=== PATIENT | female | born 1975 | race Hispanic/Latino ===

== ENCOUNTER 2021-09-12 15:49 | Inpatient (IN) | payer OTHER ==
[~2021-09-12] VITALS: Ht 167.6 cm; Wt 91.2 kg
[2021-09-12] MEDS ORDERED: FUROSEMIDE 40MG VIAL IV ONE (16:30)
[2021-09-12 16:43] LABS: BASOPHILS % (AUTO) 0.3 % (0.0-5.0); EOSINOPHILS % (AUTO) 2.7 % (0.0-8.0); LYMPHOCYTES % (AUTO) 14.4 % (21.0-51.0); MEAN CORPUSCULAR HEMOGLOBIN 29.8 pg (27.0-33.0); MEAN CORPUSCULAR HGB CONC 34.2 g/dL (32.0-36.0); MEAN CORPUSCULAR VOLUME 87.3 fL (79-99); NEUTROPHILS % (AUTO) 77.1 % (40.0-77.0); PLATELET COUNT (AUTO) 168 K/uL (130-400); RED BLOOD CELL COUNT(AUTO) 2.28 MIL/uL (4.00-5.50); RED CELL DISTRIBUTION WIDTH 12.9 % (11.0-15.5); WHITE BLOOD COUNT (AUTO) 8.8 K/uL (4.8-10.8)
[2021-09-12 16:44] LABS: APPEARANCE,URINE Clear (CLEAR); BILIRUBIN,URINE Negative (NEGATIVE); COLOR,URINE Yellow (YELLOW); GLUCOSE, URINE (UA) 500 mg/dL (NEGATIVE); KETONES,URINE Negative (NEGATIVE); LEUKOCYTE ESTERASE ,URINE Small (NEGATIVE); NITRATE,URINE Negative (NEGATIVE); OCCULT BLOOD,URINE Trace (NEGATIVE); PROTEIN,URINE 300 mg/dL (NEGATIVE); UROBILINOGEN,URINE 0.2 mg/dL (0.2-1.0)
[2021-09-12 16:48] LABS: HEMATOCRIT 19.9 % (36-48)
[2021-09-12 16:50] LABS: HCG,QUAL RESULT NEGATIVE (NEGATIVE)
[2021-09-12 16:55] LABS: POTASSIUM 4.7 mmol/L (3.5-5.1)
[2021-09-12 16:59] LABS: ALBUMIN 2.4 g/dL (3.5-5.0); BILIRUBIN,TOTAL 0.2 mg/dL (0.2-1.0); TOTAL PROTEIN, SERUM 6.3 g/dL (6.0-8.3)
[2021-09-12] MEDS ORDERED: 0.9% NACL 500ML IV.SOLN 500 ML IV SCH (17:00)
[2021-09-12] MEDS ORDERED: INSULIN HUMULIN R 100 UNIT/ML 3ML IV ONE (17:00)
[2021-09-12 17:06] LABS: B-TYPE NATRIURETIC PEPTIDE 619 pg/mL (0-100)
[2021-09-12 17:08] LABS: BACTERIA,URINE Few /HPF (None Seen); MUCUS,URINE Rare LPF (None Seen); SQUAMOUS EPITHELIAL CELL,UR Few /HPF (0-2)
[2021-09-12 20:33] LABS: AMPHET/METH SCREEN,URINE NEGATIVE (NEGATIVE); BARBITURATE SCREEN, URINE NEGATIVE (NEGATIVE); BENZODIAZEPINES SCREEN,URINE NEGATIVE (NEGATIVE); CANNABINOID SCREEN,URINE NEGATIVE (NEGATIVE); COCAINE SCREEN,URINE NEGATIVE (NEGATIVE); CREATININE,URINE RANDOM 20 mg/dL (30-135); OPIATE SCREEN,URINE NEGATIVE (NEGATIVE); PHENCYCLIDINE SCREEN,URINE NEGATIVE (NEGATIVE); SODIUM,URINE RANDOM 103 mmol/l (40-220)
[2021-09-12] MEDS: NICARDIPINE 25MG INJ 25 MG in 0.9% NACL 250ML 240 ML IV SCH (20:39)
[2021-09-12 20:41] LABS: HEMOGLOBIN A1C 10.4 % (4.0-6.0)
[2021-09-12 20:53] LABS: PHOSPHORUS 6.7 mg/dL (2.5-4.9); THYROID STIMULATING HORMONE 2.4 uIU/mL (0.36-3.74)
[2021-09-12] MEDS ORDERED: GLUCAGON 1MG KIT 1 MG ML IM PRN (21:30)
[2021-09-12] MEDS ORDERED: DEXTROSE 50%-WATER 50 ML DISP.SYRIN IV PRN (21:30)
[2021-09-12 23:43] LABS: HEMATOCRIT 21.8 % (36-48)
[2021-09-13] VITALS (48 sets, daily range): BP systolic 125–187; BP diastolic 60–99
[2021-09-13] MEDS: INSULIN HUMULIN R 100 UNIT/ML 3ML SQ SCH ×4 (05:33→16:43)
[2021-09-13 06:37] LABS: BASOPHILS % (AUTO) 0.3 % (0.0-5.0); EOSINOPHILS % (AUTO) 3.5 % (0.0-8.0); HEMATOCRIT 23.3 % (36-48); LYMPHOCYTES % (AUTO) 18.1 % (21.0-51.0); MEAN CORPUSCULAR HEMOGLOBIN 29.1 pg (27.0-33.0); MEAN CORPUSCULAR HGB CONC 34.3 g/dL (32.0-36.0); MEAN CORPUSCULAR VOLUME 84.7 fL (79-99); MONOCYTES % (AUTO) 5.7 % (3.0-13.0); NEUTROPHILS % (AUTO) 71.9 % (40.0-77.0); PLATELET COUNT (AUTO) 183 K/uL (130-400); RED BLOOD CELL COUNT(AUTO) 2.75 MIL/uL (4.00-5.50); RED CELL DISTRIBUTION WIDTH 13.6 % (11.0-15.5); WHITE BLOOD COUNT (AUTO) 8.6 K/uL (4.8-10.8)
[2021-09-13 06:50] LABS: ALBUMIN 2.4 g/dL (3.5-5.0); BILIRUBIN,TOTAL 0.3 mg/dL (0.2-1.0); POTASSIUM 4.5 mmol/L (3.5-5.1); TOTAL PROTEIN, SERUM 6.4 g/dL (6.0-8.3)
[2021-09-13 07:07] LABS: % IRON SATURATION 30.8 % (22-44)
[2021-09-13] MEDS: NICARDIPINE 25MG INJ 25 MG in 0.9% NACL 250ML 240 ML IV SCH ×2 (07:26→14:51)
[2021-09-13] MEDS: FAMOTIDINE 20MG TAB PO SCH ×2 (07:52→19:57)
[2021-09-13] MEDS: ENOXAPARIN SODIUM 30 MG/0.3 ML SQ SCH (07:53)
[2021-09-13 18:30] LABS: HEPATITIS A IGM ANTIBODY Non-Reactive (Negative); HEPATITIS B CORE IGM ANTIBODY Non-Reactive (Negative); HEPATITIS B SURFACE ANTIGEN Non-Reactive (Negative); HEPATITIS C ANTIBODY Non-Reactive (NEGATIVE)
[2021-09-13] MEDS ORDERED: HYDRALAZINE 25MG TABLET ONE (19:36)
[2021-09-13] MEDS: INSULIN GLARGINE 100 UNITS/ML 10 ML VIAL SQ SCH (19:58)
[2021-09-13] MEDS: AMP/SULBAC 1.5GM+NS 100ML 100 ML IV SCH (19:59)
[2021-09-13] MEDS ORDERED: HYDRALAZINE 25MG TABLET PO SCH (21:00)
[2021-09-14] VITALS (15 sets, daily range): BP systolic 128–180; BP diastolic 37–93
[2021-09-14 04:08] LABS: BASOPHILS % (AUTO) 0.2 % (0.0-5.0); EOSINOPHILS % (AUTO) 3.2 % (0.0-8.0); LYMPHOCYTES % (AUTO) 21.2 % (21.0-51.0); MEAN CORPUSCULAR HEMOGLOBIN 28.9 pg (27.0-33.0); MEAN CORPUSCULAR HGB CONC 34.8 g/dL (32.0-36.0); MONOCYTES % (AUTO) 5.4 % (3.0-13.0); NEUTROPHILS % (AUTO) 69.8 % (40.0-77.0); PLATELET COUNT (AUTO) 183 K/uL (130-400); RED BLOOD CELL COUNT(AUTO) 2.77 MIL/uL (4.00-5.50); RED CELL DISTRIBUTION WIDTH 13.2 % (11.0-15.5); WHITE BLOOD COUNT (AUTO) 8.4 K/uL (4.8-10.8)
[2021-09-14 04:23] LABS: CREATININE 6.5 mg/dL (0.5-1.5); MAGNESIUM 2.1 mg/dL (1.80-2.40); PHOSPHORUS 6.4 mg/dL (2.5-4.9); POTASSIUM 4.5 mmol/L (3.5-5.1)
[2021-09-14] MEDS: INSULIN HUMULIN R 100 UNIT/ML 3ML SQ SCH ×3 (05:43→17:03)
[2021-09-14] MEDS ORDERED: METOPROLOL TARTRATE 1 MG/ML 5ML VIAL IV PRN (08:30)
[2021-09-14] MEDS: HYDRALAZINE 25MG TABLET PO SCH ×2 (09:00→17:02)
[2021-09-14] MEDS: Vitamin B Complex/Vit C/Folic Acid PO SCH (09:00)
[2021-09-14] MEDS: FAMOTIDINE 20MG TAB PO SCH ×2 (09:00→20:19)
[2021-09-14] MEDS: NIFEDIPINE ER 30 MG TAB PO SCH (09:00)
[2021-09-14] MEDS: ENOXAPARIN SODIUM 30 MG/0.3 ML SQ SCH (09:01)
[2021-09-14] MEDS: AMP/SULBAC 1.5GM+NS 100ML 100 ML IV SCH (20:00)
[2021-09-14] MEDS: INSULIN GLARGINE 100 UNITS/ML 10 ML VIAL SQ SCH (20:21)
[2021-09-15] VITALS (7 sets, daily range): BP systolic 115–165; BP diastolic 62–89
[2021-09-15] MEDS: HYDRALAZINE 25MG TABLET PO SCH ×3 (01:49→17:04)
[2021-09-15 04:47] LABS: HEMATOCRIT 21.1 % (36-48); MEAN CORPUSCULAR HEMOGLOBIN 29.1 pg (27.0-33.0); MEAN CORPUSCULAR HGB CONC 33.6 g/dL (32.0-36.0); MEAN CORPUSCULAR VOLUME 86.5 fL (79-99); RED BLOOD CELL COUNT(AUTO) 2.44 MIL/uL (4.00-5.50); RED CELL DISTRIBUTION WIDTH 13.3 % (11.0-15.5); WHITE BLOOD COUNT (AUTO) 7.6 K/uL (4.8-10.8)
[2021-09-15 04:54] LABS: CREATININE 6.8 mg/dL (0.5-1.5); POTASSIUM 4.5 mmol/L (3.5-5.1)
[2021-09-15] MEDS: INSULIN HUMULIN R 100 UNIT/ML 3ML SQ SCH ×3 (06:15→17:00)
[2021-09-15] MEDS: ENOXAPARIN SODIUM 30 MG/0.3 ML SQ SCH (09:00)
[2021-09-15] MEDS: NIFEDIPINE ER 30 MG TAB PO SCH (09:47)
[2021-09-15] MEDS: Vitamin B Complex/Vit C/Folic Acid PO SCH (09:47)
[2021-09-15] MEDS: FAMOTIDINE 20MG TAB PO SCH ×2 (09:47→21:04)
[2021-09-15] MEDS ORDERED: EPOETIN ALFA-EPBX (NON-ESRD) 10,000 UNIT/ML VIAL SQ SCH (21:00)
[2021-09-15] MEDS: INSULIN GLARGINE 100 UNITS/ML 10 ML VIAL SQ SCH (21:14)
[2021-09-15] MEDS: AMP/SULBAC 1.5GM+NS 100ML 100 ML IV SCH (21:55)
[2021-09-16] MEDS: HYDRALAZINE 25MG TABLET PO SCH ×4 (00:25→23:53)
[2021-09-16 03:33] VITALS: BP 133/65
[2021-09-16 04:31] LABS: CREATININE 7.1 mg/dL (0.5-1.5); POTASSIUM 4.6 mmol/L (3.5-5.1)
[2021-09-16 05:20] LABS: HEMATOCRIT 22.3 % (36-48); MEAN CORPUSCULAR HEMOGLOBIN 28.1 pg (27.0-33.0); MEAN CORPUSCULAR HGB CONC 32.3 g/dL (32.0-36.0); MEAN CORPUSCULAR VOLUME 87.1 fL (79-99); RED BLOOD CELL COUNT(AUTO) 2.56 MIL/uL (4.00-5.50); RED CELL DISTRIBUTION WIDTH 13.3 % (11.0-15.5); WHITE BLOOD COUNT (AUTO) 7.4 K/uL (4.8-10.8)
[2021-09-16] MEDS ORDERED: ONDANSETRON 4MG INJ IVP ONE (06:00)
[2021-09-16] MEDS: INSULIN HUMULIN R 100 UNIT/ML 3ML SQ SCH ×3 (06:22→16:34)
[2021-09-16 07:00] VITALS: BP 155/81
[2021-09-16] MEDS: FAMOTIDINE 20MG TAB PO SCH (08:55)
[2021-09-16] MEDS: Vitamin B Complex/Vit C/Folic Acid PO SCH (08:55)
[2021-09-16] MEDS: NIFEDIPINE ER 30 MG TAB PO SCH (08:55)
[2021-09-16 11:00] VITALS: BP 146/71
[2021-09-16] MEDS ORDERED: ONDANSETRON 4MG INJ IVP PRN (13:00)
[2021-09-16 15:00] VITALS: BP 147/65
[2021-09-16] MEDS: FUROSEMIDE 80 MG TABLET PO SCH (16:33)
[2021-09-16 19:36] VITALS: BP 132/65
[2021-09-16] MEDS: AMP/SULBAC 1.5GM+NS 100ML 100 ML IV SCH (19:42)
[2021-09-16] MEDS: INSULIN GLARGINE 100 UNITS/ML 10 ML VIAL SQ SCH (19:46)
[2021-09-16 23:21] VITALS: BP 150/75
[2021-09-17] VITALS (9 sets, daily range): BP systolic 133–160; BP diastolic 68–94
[2021-09-17 04:11] LABS: MEAN CORPUSCULAR HEMOGLOBIN 28.4 pg (27.0-33.0); MEAN CORPUSCULAR HGB CONC 31.7 g/dL (32.0-36.0); MEAN CORPUSCULAR VOLUME 89.5 fL (79-99); PLATELET COUNT (AUTO) 144 K/uL (130-400); RED BLOOD CELL COUNT(AUTO) 2.29 MIL/uL (4.00-5.50); RED CELL DISTRIBUTION WIDTH 13.4 % (11.0-15.5); WHITE BLOOD COUNT (AUTO) 7.4 K/uL (4.8-10.8)
[2021-09-17 04:20] LABS: HEMATOCRIT 20.5 % (36-48)
[2021-09-17 04:22] LABS: CREATININE 7.2 mg/dL (0.5-1.5); POTASSIUM 4.8 mmol/L (3.5-5.1)
[2021-09-17 04:42] LABS: BAND NEUTROPHILS % (MANUAL) 1 % (0-2); BASOPHILS % (MANUAL) 1 % (0-2); EOSINOPHILS % (MANUAL) 4 % (1-6); LYMPHOCYTES % (MANUAL) 21 % (22-44); MAN.DIFF COMMENT-IMPRESSION MANUAL DIFFERENTIAL; MONOCYTES % (MANUAL) 4 % (2-9); PLATELET MORPHOLOGY COMMENT ADEQUATE; SEGMENTED NEUTROPHILS % 69 % (40-70)
[2021-09-17] MEDS: INSULIN HUMULIN R 100 UNIT/ML 3ML SQ SCH ×5 (06:12→22:14)
[2021-09-17] MEDS: Vitamin B Complex/Vit C/Folic Acid PO SCH (08:46)
[2021-09-17] MEDS: HYDRALAZINE 25MG TABLET PO SCH ×2 (08:47→16:15)
[2021-09-17] MEDS: NIFEDIPINE ER 30 MG TAB PO SCH (08:47)
[2021-09-17] MEDS: FUROSEMIDE 80 MG TABLET PO SCH ×2 (08:49→16:15)
[2021-09-17] MEDS ORDERED: FAMOTIDINE 20MG VIAL IV SCH (09:00)
[2021-09-17] MEDS: ONDANSETRON 4MG INJ IVP PRN (11:41)
[2021-09-17 12:13] LABS: HEMATOCRIT 26.8 % (36-48)
[2021-09-17] MEDS: AMP/SULBAC 1.5GM+NS 100ML 100 ML IV SCH (21:57)
[2021-09-17] MEDS: INSULIN GLARGINE 100 UNITS/ML 10 ML VIAL SQ SCH (22:14)
[2021-09-18] VITALS (17 sets, daily range): BP systolic 122–175; BP diastolic 62–95
[2021-09-18] MEDS: HYDRALAZINE 25MG TABLET PO SCH ×3 (00:33→18:10)
[2021-09-18 04:47] LABS: HEMATOCRIT 23.1 % (36-48); MEAN CORPUSCULAR HEMOGLOBIN 28.8 pg (27.0-33.0); MEAN CORPUSCULAR VOLUME 89.9 fL (79-99); PLATELET COUNT (AUTO) 152 K/uL (130-400); RED BLOOD CELL COUNT(AUTO) 2.57 MIL/uL (4.00-5.50); RED CELL DISTRIBUTION WIDTH 13.4 % (11.0-15.5)
[2021-09-18 04:56] LABS: INR 0.99 (0.85-1.15); PROTHROMBIN TIME 10.8 SEC (9.6-11.6)
[2021-09-18 04:57] LABS: % IRON SATURATION 16.5 % (22-44); PARTIAL THROMBOPLASTIN TIME 25.6 SEC (26.3-35.5)
[2021-09-18 05:05] LABS: ALBUMIN 2.4 g/dL (3.5-5.0); CREATININE 7.3 mg/dL (0.5-1.5)
[2021-09-18 05:23] LABS: BAND NEUTROPHILS % (MANUAL) 6 % (0-2); EOSINOPHILS % (MANUAL) 2 % (1-6); LYMPHOCYTES % (MANUAL) 4 % (22-44); MONOCYTES % (MANUAL) 8 % (2-9); SEGMENTED NEUTROPHILS % 80 % (40-70)
[2021-09-18 05:24] LABS: MAN.DIFF COMMENT-IMPRESSION MANUAL DIFFERENTIAL; PLATELET MORPHOLOGY COMMENT ADEQUATE
[2021-09-18] MEDS: INSULIN HUMULIN R 100 UNIT/ML 3ML SQ SCH ×7 (06:58→19:47)
[2021-09-18] MEDS: NIFEDIPINE ER 30 MG TAB PO SCH (08:10)
[2021-09-18] MEDS: Vitamin B Complex/Vit C/Folic Acid PO SCH (09:00)
[2021-09-18] MEDS: FUROSEMIDE 80 MG TABLET PO SCH ×2 (09:00→18:20)
[2021-09-18] MEDS ORDERED: HEPARIN 1,000 UNIT VIAL ONE (13:02)
[2021-09-18] MEDS ORDERED: LIDOCAINE HCL 400MG/20ML VIAL ONE (13:02)
[2021-09-18] MEDS ORDERED: MIDAZOLAM HCL 1 MG/ML 2ML VIAL ONE (13:26)
[2021-09-18] MEDS ORDERED: FENTANYL CITRATE PF 50 MCG/1 ML 2ML VIAL ONE (13:26)
[2021-09-18 18:10] LABS: HEPATITIS B SURFACE ANTIGEN Non-Reactive (Negative)
[2021-09-18] MEDS: HEPARIN 5,000 UNIT VIAL SQ SCH (18:19)
[2021-09-18] MEDS: INSULIN GLARGINE 100 UNITS/ML 10 ML VIAL SQ SCH (19:48)
[2021-09-18] MEDS: AMP/SULBAC 1.5GM+NS 100ML 100 ML IV SCH (19:48)
[2021-09-19] VITALS (19 sets, daily range): BP systolic 109–168; BP diastolic 58–84
[2021-09-19] MEDS: HYDRALAZINE 25MG TABLET PO SCH ×3 (00:55→16:49)
[2021-09-19] MEDS ORDERED: HYDROCODONE/ACETAMINOPHEN 10/325 MG TAB ONE (04:14)
[2021-09-19 05:22] LABS: HEMATOCRIT 23.8 % (36-48); MEAN CORPUSCULAR HEMOGLOBIN 28.4 pg (27.0-33.0); MEAN CORPUSCULAR HGB CONC 32.4 g/dL (32.0-36.0); MEAN CORPUSCULAR VOLUME 87.8 fL (79-99); PLATELET COUNT (AUTO) 175 K/uL (130-400); RED BLOOD CELL COUNT(AUTO) 2.71 MIL/uL (4.00-5.50); RED CELL DISTRIBUTION WIDTH 13.2 % (11.0-15.5); WHITE BLOOD COUNT (AUTO) 6.5 K/uL (4.8-10.8)
[2021-09-19 05:55] LABS: ALBUMIN 2.3 g/dL (3.5-5.0); BILIRUBIN,TOTAL 0.2 mg/dL (0.2-1.0); CREATININE 5.8 mg/dL (0.5-1.5); PHOSPHORUS 6.5 mg/dL (2.5-4.9); POTASSIUM 4.5 mmol/L (3.5-5.1)
[2021-09-19] MEDS: INSULIN HUMULIN R 100 UNIT/ML 3ML SQ SCH ×7 (06:32→22:47)
[2021-09-19 06:38] LABS: EOSINOPHILS % (MANUAL) 2 % (1-6); LYMPHOCYTES % (MANUAL) 17 % (22-44); MAN.DIFF COMMENT-IMPRESSION MANUAL DIFFERENTIAL; MONOCYTES % (MANUAL) 4 % (2-9); PLATELET MORPHOLOGY COMMENT ADEQUATE; SEGMENTED NEUTROPHILS % 77 % (40-70)
[2021-09-19] MEDS: ONDANSETRON 4MG INJ IVP PRN (08:16)
[2021-09-19] MEDS: FUROSEMIDE 80 MG TABLET PO SCH ×2 (09:00→16:50)
[2021-09-19] MEDS: Vitamin B Complex/Vit C/Folic Acid PO SCH (09:15)
[2021-09-19] MEDS: HEPARIN 5,000 UNIT VIAL SQ SCH (12:10)
[2021-09-19] MEDS: NIFEDIPINE ER 30 MG TAB PO SCH (12:50)
[2021-09-19] MEDS: HYDROCODONE/ACETAMINOPHEN 5/325 MG TAB PO PRN (18:21)
[2021-09-19] MEDS: AMP/SULBAC 1.5GM+NS 100ML 100 ML IV SCH (19:33)
[2021-09-19] MEDS: INSULIN GLARGINE 100 UNITS/ML 10 ML VIAL SQ SCH (22:48)
[2021-09-20] VITALS (22 sets, daily range): BP systolic 108–161; BP diastolic 54–84
[2021-09-20] MEDS: HYDRALAZINE 25MG TABLET PO SCH ×3 (00:39→18:51)
[2021-09-20 04:11] LABS: HEMATOCRIT 24.9 % (36-48); MEAN CORPUSCULAR HEMOGLOBIN 28.6 pg (27.0-33.0); MEAN CORPUSCULAR HGB CONC 32.5 g/dL (32.0-36.0); PLATELET COUNT (AUTO) 205 K/uL (130-400); RED BLOOD CELL COUNT(AUTO) 2.83 MIL/uL (4.00-5.50); WHITE BLOOD COUNT (AUTO) 7.1 K/uL (4.8-10.8)
[2021-09-20 04:43] LABS: ALBUMIN 2.2 g/dL (3.5-5.0); BILIRUBIN,TOTAL 0.2 mg/dL (0.2-1.0); CREATININE 4.9 mg/dL (0.5-1.5); PHOSPHORUS 6.4 mg/dL (2.5-4.9); POTASSIUM 4.4 mmol/L (3.5-5.1); TOTAL PROTEIN, SERUM 6.2 g/dL (6.0-8.3)
[2021-09-20 05:21] LABS: BAND NEUTROPHILS % (MANUAL) 1 % (0-2); EOSINOPHILS % (MANUAL) 3 % (1-6); LYMPHOCYTES % (MANUAL) 38 % (22-44); MAN.DIFF COMMENT-IMPRESSION MANUAL DIFFERENTIAL; SEGMENTED NEUTROPHILS % 58 % (40-70)
[2021-09-20 05:22] LABS: PLATELET MORPHOLOGY COMMENT ADEQUATE
[2021-09-20] MEDS: INSULIN HUMULIN R 100 UNIT/ML 3ML SQ SCH ×7 (05:41→20:36)
[2021-09-20] MEDS: FUROSEMIDE 80 MG TABLET PO SCH ×2 (08:40→18:51)
[2021-09-20] MEDS: Vitamin B Complex/Vit C/Folic Acid PO SCH (08:40)
[2021-09-20] MEDS: NIFEDIPINE ER 30 MG TAB PO SCH (09:00)
[2021-09-20] MEDS: EPOETIN ALFA-EPBX (ESRD) 10,000 UNIT/ML VIAL SQ SCH (20:23)
[2021-09-20] MEDS: AMP/SULBAC 1.5GM+NS 100ML 100 ML IV SCH (20:23)
[2021-09-20] MEDS: INSULIN GLARGINE 100 UNITS/ML 10 ML VIAL SQ SCH (20:26)
[2021-09-21] VITALS (7 sets, daily range): BP systolic 108–144; BP diastolic 48–78
[2021-09-21] MEDS: HYDRALAZINE 25MG TABLET PO SCH ×3 (02:43→17:20)
[2021-09-21 04:10] LABS: HEMATOCRIT 26.3 % (36-48); MEAN CORPUSCULAR HEMOGLOBIN 27.9 pg (27.0-33.0); MEAN CORPUSCULAR HGB CONC 31.9 g/dL (32.0-36.0); MEAN CORPUSCULAR VOLUME 87.4 fL (79-99); RED BLOOD CELL COUNT(AUTO) 3.01 MIL/uL (4.00-5.50); RED CELL DISTRIBUTION WIDTH 12.9 % (11.0-15.5)
[2021-09-21 04:27] LABS: ALBUMIN 2.3 g/dL (3.5-5.0); BILIRUBIN,TOTAL 0.2 mg/dL (0.2-1.0); CREATININE 4.3 mg/dL (0.5-1.5); POTASSIUM 3.9 mmol/L (3.5-5.1)
[2021-09-21] MEDS: INSULIN HUMULIN R 100 UNIT/ML 3ML SQ SCH ×7 (07:30→19:57)
[2021-09-21] MEDS: NIFEDIPINE ER 30 MG TAB PO SCH (08:53)
[2021-09-21] MEDS: FUROSEMIDE 80 MG TABLET PO SCH ×2 (08:53→17:20)
[2021-09-21] MEDS: Vitamin B Complex/Vit C/Folic Acid PO SCH (08:53)
[2021-09-21] MEDS ORDERED: POLYETHYLENE GLYCOL 3350 17 GM POWD.PACK ONE (15:26)
[2021-09-21] MEDS: POLYETHYLENE GLYCOL 3350 17 GM POWD.PACK PO SCH (16:06)
[2021-09-21] MEDS: AMP/SULBAC 1.5GM+NS 100ML 100 ML IV SCH (20:40)
[2021-09-21] MEDS: INSULIN GLARGINE 100 UNITS/ML 10 ML VIAL SQ SCH (20:41)
[2021-09-22] VITALS (26 sets, daily range): BP systolic 112–167; BP diastolic 48–78
[2021-09-22] MEDS: HYDRALAZINE 25MG TABLET PO SCH ×3 (00:56→17:53)
[2021-09-22 04:16] LABS: BASOPHILS % (AUTO) 0.4 % (0.0-5.0); EOSINOPHILS % (AUTO) 4.2 % (0.0-8.0); HEMATOCRIT 25.6 % (36-48); LYMPHOCYTES % (AUTO) 28.7 % (21.0-51.0); MEAN CORPUSCULAR HEMOGLOBIN 28.7 pg (27.0-33.0); MEAN CORPUSCULAR VOLUME 89.5 fL (79-99); MONOCYTES % (AUTO) 8.6 % (3.0-13.0); NEUTROPHILS % (AUTO) 57.5 % (40.0-77.0); PLATELET COUNT (AUTO) 252 K/uL (130-400); RED BLOOD CELL COUNT(AUTO) 2.86 MIL/uL (4.00-5.50); RED CELL DISTRIBUTION WIDTH 13.2 % (11.0-15.5)
[2021-09-22 04:23] LABS: ALBUMIN 2.3 g/dL (3.5-5.0); BILIRUBIN,TOTAL 0.2 mg/dL (0.2-1.0); CREATININE 5.6 mg/dL (0.5-1.5); POTASSIUM 4.3 mmol/L (3.5-5.1); TOTAL PROTEIN, SERUM 6.1 g/dL (6.0-8.3)
[2021-09-22 04:27] LABS: PROTHROMBIN TIME 10.9 SEC (9.6-11.6)
[2021-09-22 04:28] LABS: PARTIAL THROMBOPLASTIN TIME 25.3 SEC (26.3-35.5)
[2021-09-22] MEDS: INSULIN HUMULIN R 100 UNIT/ML 3ML SQ SCH ×7 (05:35→21:36)
[2021-09-22] MEDS: FUROSEMIDE 80 MG TABLET PO SCH ×2 (08:30→17:54)
[2021-09-22] MEDS: NIFEDIPINE ER 30 MG TAB PO SCH (08:30)
[2021-09-22] MEDS: POLYETHYLENE GLYCOL 3350 17 GM POWD.PACK PO SCH (08:31)
[2021-09-22] MEDS: Vitamin B Complex/Vit C/Folic Acid PO SCH (08:31)
[2021-09-22] MEDS ORDERED: POLYETHYLENE GLYCOL 3350 17 GM POWD.PACK PO SCH (09:00)
[2021-09-22] MEDS ORDERED: LIDOCAINE PF 100MG/5ML (2%) SYRINGE 5ML ONE (09:14)
[2021-09-22] MEDS ORDERED: ONDANSETRON 4MG INJ ONE (09:16)
[2021-09-22] MEDS ORDERED: MIDAZOLAM HCL 1 MG/ML 2ML VIAL ONE (09:16)
[2021-09-22] MEDS ORDERED: PROPOFOL 10 MG/ML 20ML VIAL IV ONE (09:17)
[2021-09-22] MEDS ORDERED: CEFAZOLIN SODIUM 1 GM VIAL ONE (09:32)
[2021-09-22] MEDS ORDERED: PHENYLEPHRINE HCL 10 MG/ML 1ML VIAL IV ONE (09:40)
[2021-09-22] MEDS ORDERED: FENTANYL CITRATE PF 50 MCG/1 ML 2ML VIAL ONE (09:42)
[2021-09-22] MEDS ORDERED: CEFAZOLIN SODIUM 1 GM VIAL IVP PRN (10:00)
[2021-09-22] MEDS ORDERED: BUPIVACAINE/PF 0.5% 30ML VIAL ONE (10:40)
[2021-09-22] MEDS ORDERED: LIDOCAINE HCL 1% MDV 50ML VIAL ONE (10:41)
[2021-09-22] MEDS ORDERED: PROTAMINE SULFATE 10 MG/ML 5 ML VIAL ONE ×2 (11:16→11:32)
[2021-09-22] MEDS ORDERED: NEOSTIGMINE 5MG/5ML SYR IV ONE (11:32)
[2021-09-22] MEDS ORDERED: GLYCOPYRROLATE 1 MG/5 ML SYRINGE ONE (11:32)
[2021-09-22] MEDS ORDERED: MEPERIDINE-PF 25 MG/ML SYG ONE (12:06)
[2021-09-22] MEDS: CEFAZOLIN SODIUM 1 GM VIAL IVP SCH (17:53)
[2021-09-22] MEDS: HYDROCODONE/ACETAMINOPHEN 5/325 MG TAB PO PRN ×2 (18:01→23:09)
[2021-09-22] MEDS: EPOETIN ALFA-EPBX (ESRD) 10,000 UNIT/ML VIAL SQ SCH (21:22)
[2021-09-22] MEDS: AMP/SULBAC 1.5GM+NS 100ML 100 ML IV SCH (21:22)
[2021-09-22] MEDS: INSULIN GLARGINE 100 UNITS/ML 10 ML VIAL SQ SCH (21:35)
[2021-09-23] VITALS (21 sets, daily range): BP systolic 118–154; BP diastolic 56–86
[2021-09-23] MEDS: HYDRALAZINE 25MG TABLET PO SCH ×3 (01:04→17:00)
[2021-09-23 04:18] LABS: BASOPHILS % (AUTO) 0.4 % (0.0-5.0); EOSINOPHILS % (AUTO) 2.9 % (0.0-8.0); HEMATOCRIT 27.3 % (36-48); LYMPHOCYTES % (AUTO) 24.4 % (21.0-51.0); MEAN CORPUSCULAR HEMOGLOBIN 28.6 pg (27.0-33.0); MEAN CORPUSCULAR HGB CONC 31.9 g/dL (32.0-36.0); MEAN CORPUSCULAR VOLUME 89.8 fL (79-99); NEUTROPHILS % (AUTO) 65.8 % (40.0-77.0); PLATELET COUNT (AUTO) 286 K/uL (130-400); RED BLOOD CELL COUNT(AUTO) 3.04 MIL/uL (4.00-5.50); RED CELL DISTRIBUTION WIDTH 13.5 % (11.0-15.5); WHITE BLOOD COUNT (AUTO) 10.1 K/uL (4.8-10.8)
[2021-09-23] MEDS: CEFAZOLIN SODIUM 1 GM VIAL IVP SCH ×2 (04:50→19:57)
[2021-09-23 04:53] LABS: ALBUMIN 2.6 g/dL (3.5-5.0); BILIRUBIN,TOTAL 0.2 mg/dL (0.2-1.0); CREATININE 6.8 mg/dL (0.5-1.5); POTASSIUM 4.3 mmol/L (3.5-5.1); TOTAL PROTEIN, SERUM 6.8 g/dL (6.0-8.3)
[2021-09-23] MEDS: HYDROCODONE/ACETAMINOPHEN 5/325 MG TAB PO PRN ×2 (05:35→16:04)
[2021-09-23] MEDS: INSULIN HUMULIN R 100 UNIT/ML 3ML SQ SCH ×7 (05:36→20:11)
[2021-09-23] MEDS: Vitamin B Complex/Vit C/Folic Acid PO SCH (07:24)
[2021-09-23] MEDS: FUROSEMIDE 80 MG TABLET PO SCH ×2 (07:24→16:24)
[2021-09-23] MEDS: POLYETHYLENE GLYCOL 3350 17 GM POWD.PACK PO SCH (07:25)
[2021-09-23] MEDS: NIFEDIPINE ER 30 MG TAB PO SCH (07:25)
[2021-09-23] MEDS ORDERED: HYDR25 PO (13:57)
[2021-09-23] MEDS ORDERED: NIFE-40 PO (13:57)
[2021-09-23] MEDS ORDERED: CEFAZOLIN SODIUM 1 GM VIAL ONE (19:26)
[2021-09-23] MEDS: AMP/SULBAC 1.5GM+NS 100ML 100 ML IV SCH (20:05)
[2021-09-23] MEDS: ONDANSETRON 4MG INJ IVP PRN (20:07)
[2021-09-23] MEDS: INSULIN GLARGINE 100 UNITS/ML 10 ML VIAL SQ SCH (20:15)
== END 2021-09-23 21:55 | disposition home or self-care (01) | DRG 674 ==
LOC: EDH 15:49 → EDHIP 15:50 → OBSVTOIN 15:50 → 2CH 09-13 02:54 → 4BH 09-14 17:41 → 4DH 09-17 05:08
PROVIDERS: ADMIT Hospitalist; ATTEND Hospitalist
PROC: 30233N1 Transfusion of Nonautologous Red Blood Cells into Peripheral Vein, Percutaneous Approach (ICD-10-PCS; 2021-09-12)
PROC: 0JH63XZ Insertion of Tunneled Vascular Access Device into Chest Subcutaneous Tissue and Fascia, Percutaneous Approach (ICD-10-PCS; 2021-09-18)
PROC: 02H633Z Insertion of Infusion Device into Right Atrium, Percutaneous Approach (ICD-10-PCS; 2021-09-18)
PROC: B5181ZA Fluoroscopy of Superior Vena Cava using Low Osmolar Contrast, Guidance (ICD-10-PCS; 2021-09-18)
PROC: B548ZZA Ultrasonography of Superior Vena Cava, Guidance (ICD-10-PCS; 2021-09-18)
PROC: 5A1D70Z Performance of Urinary Filtration, Intermittent, Less than 6 Hours Per Day (ICD-10-PCS; 2021-09-18)
PROC: 5A1D70Z Performance of Urinary Filtration, Intermittent, Less than 6 Hours Per Day (ICD-10-PCS; 2021-09-19)
PROC: 5A1D70Z Performance of Urinary Filtration, Intermittent, Less than 6 Hours Per Day (ICD-10-PCS; 2021-09-20)
PROC: 03180ZD Bypass Left Brachial Artery to Upper Arm Vein, Open Approach (ICD-10-PCS; principal; 2021-09-22 10:12)
PROC: 5A1D70Z Performance of Urinary Filtration, Intermittent, Less than 6 Hours Per Day (ICD-10-PCS; 2021-09-23)
DX: N17.9 Acute kidney failure, unspecified (principal); I12.0 Hypertensive chronic kidney disease with stage 5 chronic kidney disease or end stage renal disease; E87.1 Hypo-osmolality and hyponatremia; I16.1 Hypertensive emergency; N18.6 End stage renal disease; E11.65 Type 2 diabetes mellitus with hyperglycemia; Z20.822 Contact with and (suspected) exposure to COVID-19; D64.9 Anemia, unspecified; Z68.29 Body mass index [BMI] 29.0-29.9, adult; Z79.899 Other long term (current) drug therapy; E87.70 Fluid overload, unspecified; N13.30 Unspecified hydronephrosis; E66.9 Obesity, unspecified; E11.22 Type 2 diabetes mellitus with diabetic chronic kidney disease; E78.5 Hyperlipidemia, unspecified; Z99.2 Dependence on renal dialysis; E78.00 Pure hypercholesterolemia, unspecified
CPT/HCPCS: 36415; 36430; 36558; 71045; 76770; 77001; 80048; 80053; 80061; 80074; 80305; 81001; 81025; 82010; 82040; 82270; 82570; 82728; 82948; 83036; 83540; 83550; 83735; 83880; 84100; 84156; 84300; 84443; 84484; 84540; 85014; 85018; 85025; 85027; 85610; 85730; 86038; 86160; 86215; 86235; 86255; 86701; 86704; 86706; 86850; 86900; 86901; 86923; 87040; 87077; 87186; 87340; 87390; 87635; 87804; 90935; 93005; 93970; 93971; 99156; C1750; G0378; J0295; J0690; J1644; J1650; J1815; J1940; J2001; J2175; J2250; J2370; J2405; J2704; J2710; J2720; J3010; J3490; J7040; J7050; P9016

== ENCOUNTER 2022-09-03 19:48 | Inpatient (IN) | payer MEDICARE ==
[~2022-09-03] VITALS: Ht 167.6 cm; Wt 97.3 kg
[~2022-09-03 19:48] MED LIST: HYDR25 PO; NIFE-40 PO
[2022-09-03 20:12] LABS: BASOPHILS % (AUTO) 0.3 % (0.0-5.0); EOSINOPHILS % (AUTO) 1.8 % (0.0-8.0); HEMATOCRIT 36.9 % (36-48); LYMPHOCYTES % (AUTO) 21.4 % (21.0-51.0); MEAN CORPUSCULAR HEMOGLOBIN 29.2 pg (27.0-33.0); MEAN CORPUSCULAR HGB CONC 32.8 g/dL (32.0-36.0); MEAN CORPUSCULAR VOLUME 89.1 fL (79-99); MONOCYTES % (AUTO) 11.2 % (3.0-13.0); NEUTROPHILS % (AUTO) 64.8 % (40.0-77.0); PLATELET COUNT (AUTO) 212 K/uL (130-400); RED BLOOD CELL COUNT(AUTO) 4.14 MIL/uL (4.00-5.50); RED CELL DISTRIBUTION WIDTH 15.6 % (11.0-15.5); WHITE BLOOD COUNT (AUTO) 6.2 K/uL (4.8-10.8)
[2022-09-03 20:31] LABS: ALBUMIN 3.2 g/dL (3.5-5.0); POTASSIUM 5.3 mmol/L (3.5-5.1); TOTAL PROTEIN, SERUM 7.4 g/dL (6.0-8.3)
[2022-09-03 20:33] LABS: CREATININE 8.3 mg/dL (0.5-1.5)
[2022-09-03 20:44] LABS: B-TYPE NATRIURETIC PEPTIDE 3930 pg/mL (0-100)
[2022-09-03] MEDS ORDERED: MAGNESIUM 2GM PREMIX 50ML 50 ML IV PRN (23:30)
[2022-09-03] MEDS ORDERED: MORPHINE 2 MG SYG IV PRN (23:30)
[2022-09-03] MEDS ORDERED: ACETAMINOPHEN 325 MG TAB PO PRN (23:30)
[2022-09-03] MEDS ORDERED: MORPHINE 4 MG SYG IV PRN (23:30)
[2022-09-03] MEDS: IPRATROPIUM 0.5 MG/2.5 ML INH IH SCH (23:51)
[2022-09-03] MEDS: ALBUTEROL 0.083% 2.5 MG/3 ML INH IH SCH (23:51)
[2022-09-04] VITALS (25 sets, daily range): BP systolic 131–204; BP diastolic 57–86
[2022-09-04] MEDS: CEFTRIAXONE 1G VIAL IV SCH (00:53)
[2022-09-04] MEDS: DOXYCYCLINE 100MG+NS 250ML 250 ML IV SCH ×2 (00:53→13:46)
[2022-09-04] MEDS: HYDRALAZINE 20MG/ML VIAL IV PRN ×2 (00:55→12:41)
[2022-09-04] MEDS: ONDANSETRON 4MG INJ IV PRN (01:12)
[2022-09-04] MEDS ORDERED: DiphenhydrAMINE HCL 25 MG/10 ML ELIXIR UDCUP ONE (01:23)
[2022-09-04] MEDS ORDERED: NA ZIRCON CYCLOSIL(LOKELMA 10GM) PO ONE (02:30)
[2022-09-04] MEDS ORDERED: DiphenhydrAMINE HCL 50 MG/ML VIAL ONE (03:54)
[2022-09-04] MEDS: INSULIN HUMULIN R 100 UNIT/ML 3ML SQ SCH ×4 (06:17→20:54)
[2022-09-04] MEDS: ACETAMINOPHEN 325 MG TAB PO PRN ×2 (06:58→15:45)
[2022-09-04] MEDS: ALBUTEROL 0.083% 2.5 MG/3 ML INH IH SCH ×3 (07:02→18:54)
[2022-09-04] MEDS: IPRATROPIUM 0.5 MG/2.5 ML INH IH SCH ×3 (07:02→18:54)
[2022-09-04 07:13] LABS: BASOPHILS % (AUTO) 0.4 % (0.0-5.0); EOSINOPHILS % (AUTO) 1.9 % (0.0-8.0); HEMATOCRIT 37.1 % (36-48); LYMPHOCYTES % (AUTO) 19.4 % (21.0-51.0); MEAN CORPUSCULAR HEMOGLOBIN 29.5 pg (27.0-33.0); MEAN CORPUSCULAR HGB CONC 32.9 g/dL (32.0-36.0); MEAN CORPUSCULAR VOLUME 89.6 fL (79-99); MONOCYTES % (AUTO) 7.9 % (3.0-13.0); PLATELET COUNT (AUTO) 220 K/uL (130-400); RED BLOOD CELL COUNT(AUTO) 4.14 MIL/uL (4.00-5.50); RED CELL DISTRIBUTION WIDTH 15.9 % (11.0-15.5); WHITE BLOOD COUNT (AUTO) 7.4 K/uL (4.8-10.8)
[2022-09-04 07:23] LABS: HEMOGLOBIN A1C 10.2 % (4.0-6.0)
[2022-09-04 07:33] LABS: MAGNESIUM 2.8 mg/dL (1.80-2.40); PHOSPHORUS 6.6 mg/dL (2.5-4.9)
[2022-09-04 07:39] LABS: POTASSIUM 6.5 mmol/L (3.5-5.1)
[2022-09-04 07:40] LABS: CREATININE 8.6 mg/dL (0.5-1.5)
[2022-09-04] MEDS: HEPARIN 5,000 UNIT VIAL SQ SCH ×2 (09:00→20:13)
[2022-09-04] MEDS: INSULIN GLARGINE 100 UNITS/ML 10 ML VIAL SQ SCH ×2 (10:25→20:54)
[2022-09-04] MEDS: PANTOPRAZOLE 40 MG TAB DR PO SCH (13:46)
[2022-09-04] MEDS: Vitamin B Complex/Vit C/Folic Acid PO SCH (13:48)
[2022-09-04] MEDS ORDERED: PROCHLORPERAZINE 10MG/2ML INJ IV PRN (16:00)
[2022-09-04] MEDS ORDERED: KETOROLAC 15MG/ML VIAL (15MG/ML) IV PRN (16:00)
[2022-09-04] MEDS ORDERED: LABETALOL 20MG VIAL IV PRN (16:00)
[2022-09-04] MEDS ORDERED: DiphenhydrAMINE HCL 50 MG/ML VIAL IV PRN (16:00)
[2022-09-04] MEDS: HYDRALAZINE 25MG TABLET PO SCH (16:00)
[2022-09-04 16:33] LABS: HEPATITIS B SURFACE ANTIGEN Non-Reactive (Nonreactive)
[2022-09-04] MEDS: SEVELAMER HCL 800 MG TABLET PO SCH (18:18)
[2022-09-04] MEDS ORDERED: AMLODIPINE 5 MG TAB PO SCH (21:00)
[2022-09-05] MEDS: ALBUTEROL 0.083% 2.5 MG/3 ML INH IH SCH ×3 (00:15→11:31)
[2022-09-05] MEDS: IPRATROPIUM 0.5 MG/2.5 ML INH IH SCH ×3 (00:15→11:31)
[2022-09-05] MEDS: CEFTRIAXONE 1G VIAL IV SCH (01:05)
[2022-09-05] MEDS: DOXYCYCLINE 100MG+NS 250ML 250 ML IV SCH ×2 (01:05→11:59)
[2022-09-05] MEDS: HYDRALAZINE 25MG TABLET PO SCH ×3 (01:08→15:20)
[2022-09-05 04:47] VITALS: BP 147/61
[2022-09-05 05:04] LABS: HEMATOCRIT 37.7 % (36-48); MEAN CORPUSCULAR HGB CONC 31.8 g/dL (32.0-36.0); MEAN CORPUSCULAR VOLUME 91.1 fL (79-99); RED BLOOD CELL COUNT(AUTO) 4.14 MIL/uL (4.00-5.50); RED CELL DISTRIBUTION WIDTH 16.6 % (11.0-15.5); WHITE BLOOD COUNT (AUTO) 8.6 K/uL (4.8-10.8)
[2022-09-05 05:20] LABS: CREATININE 6.6 mg/dL (0.5-1.5); PHOSPHORUS 5.9 mg/dL (2.5-4.9); POTASSIUM 4.3 mmol/L (3.5-5.1); TOTAL PROTEIN, SERUM 7.1 g/dL (6.0-8.3)
[2022-09-05] MEDS: INSULIN GLARGINE 100 UNITS/ML 10 ML VIAL SQ SCH (06:14)
[2022-09-05] MEDS: INSULIN HUMULIN R 100 UNIT/ML 3ML SQ SCH ×2 (06:14→12:07)
[2022-09-05 08:00] VITALS: BP 155/73
[2022-09-05] MEDS: Vitamin B Complex/Vit C/Folic Acid PO SCH (08:27)
[2022-09-05] MEDS: SEVELAMER HCL 800 MG TABLET PO SCH ×2 (08:27→11:59)
[2022-09-05] MEDS: PANTOPRAZOLE 40 MG TAB DR PO SCH (08:27)
[2022-09-05] MEDS: HEPARIN 5,000 UNIT VIAL SQ SCH (08:33)
[2022-09-05] MEDS: ONDANSETRON 4MG INJ IV PRN ×2 (08:43→14:20)
[2022-09-05] MEDS ORDERED: NIFEDIPINE ER 30 MG TAB PO SCH (09:00)
[2022-09-05 12:00] VITALS: BP 176/82
[2022-09-05] MEDS ORDERED: LACTULOSE 20 GM/30 ML UDCUP PO ONE (12:00)
[2022-09-05] MEDS ORDERED: PIOG45TA64 PO (12:23)
[2022-09-05] MEDS ORDERED: NIFE-40 PO (12:23)
[2022-09-05] MEDS ORDERED: HYDR25 PO (12:23)
[2022-09-05] MEDS ORDERED: METF-446 PO (12:23)
[2022-09-05] MEDS: ACETAMINOPHEN 325 MG TAB PO PRN (15:21)
== END 2022-09-05 16:05 | disposition home or self-care (01) | DRG 73 ==
LOC: EDH 19:48 → EDHIP 19:49 → 4DH 09-04 04:10
PROVIDERS: ADMIT Internal Medicine; ATTEND Internal Medicine
PROC: 5A1D70Z Performance of Urinary Filtration, Intermittent, Less than 6 Hours Per Day (ICD-10-PCS; principal; 2022-09-04)
DX: E11.43 Type 2 diabetes mellitus with diabetic autonomic (poly)neuropathy (principal); N18.6 End stage renal disease; I12.0 Hypertensive chronic kidney disease with stage 5 chronic kidney disease or end stage renal disease; E11.65 Type 2 diabetes mellitus with hyperglycemia; E11.22 Type 2 diabetes mellitus with diabetic chronic kidney disease; E87.5 Hyperkalemia; Z20.822 Contact with and (suspected) exposure to COVID-19; E87.70 Fluid overload, unspecified; E78.5 Hyperlipidemia, unspecified; I16.0 Hypertensive urgency; K31.84 Gastroparesis; Z99.2 Dependence on renal dialysis
CPT/HCPCS: 36415; 71045; 80048; 80053; 82948; 83036; 83605; 83735; 83880; 84100; 84145; 84484; 85025; 85027; 86704; 86706; 87040; 87340; 87635; 87804; 90935; 93005; 94640; 94664; G0378; J0360; J0696; J1200; J1644; J1815; J2405; J3490